=== PATIENT | male | born 1985 ===

== ENCOUNTER 2019-10-25 20:09 | Emergency (ER) | payer SELFPAY ==
[2019-10-25 20:37] VITALS: BP 135/91
--- NOTE | 2019-10-25 23:37 | Emergency Department Report ---
[facility] Chief Complaint: Eye Problems Stated Complaint: BOTH EYES RED Time Seen by Provider: 10/25/19 23:22 Duration: 4 Days Symptoms: Yes Eye Itching, Yes Eye Redness, Yes Purulent Drainage Other History: 34-year-old -[place] male presents to the emergency room complaining of redness and irritation to both eyes since Friday. Patient states he first started in his right eye in the next day came to his left eye. Patient states it first day he had discharge and since just tearing. Patient has been taking gokn-zev-jvdfano pinkeye medication without relief. Patient denies any contact use. Patient does admit to having a cold and runny nose. Patient denies any past medical history takes no medications on a daily basis has no known drug allergies and does not smoke. ED Review of Systems ROS: Stated complaint: BOTH EYES RED Other details as noted in HPI ED Past Medical Hx - Past Medical History Previous Medical History?: No - Surgical History Past Surgical History?: No - Social History Smoking Status: Never Smoker - Medications Home Medications: Home Medications Medication Instructions Recorded Confirmed Last Taken Type Carboxymethylcellulose Sodium 1 drop OP BID PRN 10 Days #1 bottle 10/25/19 Unknown Rx [Refresh Tears] Erythromycin [Erythromycin Ophth 1 strip OU QID 10 Days #1 tube 10/25/19 Unknown Rx Oint] [facility] Exam - Exam General: Vital signs noted. No distress. Alert and acting appropriately. Eye Exam: Both Injection HEENT: No Nasal Congestion, No Pharyngeal Erythema Remainder of HEENT: Normal ED Course Vital Signs 10/25/19 20:35 Temperature 99.3 F Pulse Rate 102 H Respiratory 18 Rate Blood Pressure 135/91 O2 Sat by Pulse 100 Oximetry ED Medical Decision Making - Medical Decision Making 34-year-old -Sud[place] male presents to the emergency room complaining of redness and irritation to both eyes since Friday. Patient states he first started in his right eye in the next day came to his left eye. Patient states it first day he had discharge and since just tearing. Patient has been taking hmsi-bjh-zvcmjzu pinkeye medication without relief. Patient denies any contact use. Patient does admit to having a cold and runny nose. Patient denies any past medical history takes no medications on a daily basis has no known drug allergies and does not smoke. Patient be given a prescription for erythromycin ointment and recommend [id number] refresh for dry eyes. Patient is to follow-up with an learning and development manager if symptoms persist or gets worse. Critical care attestation.: If time is entered above; I have spent that time in minutes in the direct care of this critically ill patient, excluding procedure time. ED Disposition Clinical Impression: Dry eyes, bilateral, Conjunctivitis Disposition: TO HOME OR SELFCARE Is pt being admited?: No Does the pt Need Aspirin: No Condition: Stable Instructions: Conjunctivitis (ED) Additional Instructions: Use eyedrops and eye lubricant as prescribed. If your symptoms persist or gets worse please follow-up with an learning and development manager. Prescriptions: Erythromycin [Erythromycin Ophth Oint] 1 strip OU QID 10 Days #1 tube Carboxymethylcellulose Sodium [Refresh Tears] 1 drop OP BID PRN 10 Days #1 bottle PRN Reason: dry eyes Referrals: PRIMARY CARE, [Primary Care Provider] - 3-5 Days KARSIHMA FRANK MD [Staff Physician] - 3-5 Days Forms: Work/School Release Form(ED)
== END 2019-10-25 23:50 | disposition home or self-care (01) ==
LOC: ED 20:09
DX: H10.89 Other conjunctivitis (principal)
CPT/HCPCS: 99282

== ENCOUNTER 2019-10-29 16:35 | Emergency (ER) | payer SELFPAY ==
[2019-10-29 17:00] VITALS: BP 117/84
--- NOTE | 2019-10-29 18:53 | Emergency Department Report ---
Chief Complaint: Urogenital-Male Stated Complaint: BLOOD WORK/EYES IRRIATATED Time Seen by Provider: 10/29/19 18:52 - HPI History of Present Illness: This is a 34-year-old -[place] male who presents to the emergency room with itching and redness to bilateral eyes for 1 week. Patient states he was diagnosed with conjunctivitis Friday in using antibiotics. Patient states he is applying the tip of the erythromycin dispenser in both eyes with worsening pain. He denies visual changes, swelling, photophobia, headache, or discharge. - ROS Review of Systems: HEENT: itchy and redness bilateral eyes - Exam Vital Signs: Vital Signs 10/29/19 16:59 Temperature 98.2 F Pulse Rate 87 Respiratory 14 Rate Blood Pressure 117/84 [Left] O2 Sat by Pulse 98 Oximetry Physical Exam: HEENT: bilateral conjunctiva injected, yellowish mucoid discharge, PERRL, no edema MSE screening note: Focused history and physical exam performed. Due to findings the following was ordered: ED Medical Decision Making - Medical Decision Making 34 y.o. M. presents with bilateral, conjunctival injection with mucoid discharge concerning for a bacterial conjunctivitis. The Pt is otherwise afebrile and well-appearing without clinical evidence of orbital cellulitis or endoph thalmitis. No recent history concerning for corneal abrasion. The Pt was diagnosed with conjunctivitis on Friday and contaminated antibiotic ointment. Refilled erythomycin opth ointment. Gave strict instructions on how to instill ointment into both eyes. Discussed strict return precautions and supportive care including: frequent hand washing, OTC analgesics, and hydration. Recommended close follow up with a PCP. Patient discharged home stable. ED Disposition for MSE Clinical Impression: Conjunctivitis Qualifiers: Conjunctivitis type: acute Acute conjunctivitis type: bacterial Laterality: bilateral Qualified Code(s): H10.33 - Unspecified acute conjunctivitis, bilateral Disposition: MED SCREENING EXAM-LEFT Is pt being admited?: No Condition: Stable Instructions: Conjunctivitis (ED) Prescriptions: Erythromycin [Erythromycin Ophth Oint] 1 strip OU QID 10 Days #1 tube Referrals: [facility] [place] [Outside] - 3-5 Days [facility] [Outside] - 3-5 Days [facility] [Outside] - 3-5 Days Forms: Work/School Release Form(ED) Time of Disposition: 18:56
== END 2019-10-29 19:20 | disposition left against medical advice (07) ==
LOC: ED 16:35
DX: H10.9 Unspecified conjunctivitis (principal)
CPT/HCPCS: 99281

== ENCOUNTER 2022-06-02 08:45 | Emergency (ER) | payer SELFPAY ==
[2022-06-02 09:02] VITALS: BP 145/89
--- NOTE | 2022-06-02 12:11 | Emergency Department Report ---
ED Male HPI - General Chief complaint: Urogenital-Male Stated complaint: MEDICAL CLEARENCE Time Seen by Provider: 06/02/22 11:38 Source: patient Mode of arrival: Ambulatory Limitations: No Limitations - History of Present Illness Initial comments: 36-year-old black male with no past medical history presents to the emergency department for evaluation of lesions to his penis for the past 2 days. He states that he was in Religion over the past week where he was bit by mosquitoes all over his body because he slept naked outside and noticed the 2 bi maame to his penis also. He states that he has been putting some cream to the insect bites and the bites on his hands legs, and arms have improved but it seems that the bites on his penis are still red. He denies any pain to the lesions and states that it just itches. He denies penile discharge, dysuria, abdominal pain, fever. Patient also in hand the results of a syphilis test, HIV, hepatitis B and herpes test that he took last week and all were negative. He denies any unprotected sex in the last few months. MD Complaint: other (Pruritic lesions to penile area) -: Gradual, days(s) (3) Severity scale (0 -10): 0 denies: discharge, swelling, mass, rash, urinary retention, blood in urine, dysuria, fever, nausea/vomiting, incontinence - Related Data Sexually active: Yes Previous Rx's Medication Instructions Recorded Last Taken Type Carboxymethylcellulose Sodium 1 drop OP BID PRN 10 Days #1 bottle 10/25/19 Unknown Rx [Refresh Tears] Erythromycin [Erythromycin Ophth 1 strip OU QID 10 Days #1 tube 10/29/19 Unknown Rx Oint] diphenhydrAMINE/ZINC 2% [Banophen 1 applicatio TP BID #1 tube 06/02/22 Unknown Rx Anti-Itch] Allergies Allergy/AdvReac Type Severity Reaction Status Date / Time No Known Allergies Allergy Verified 10/25/19 20:11 ED Review of Systems ROS: Stated complaint: MEDICAL CLEARENCE Other details as noted in HPI Comment: All other systems reviewed and negative Constitutional: denies: chills, fever Gastrointestinal: denies: abdominal pain, nausea, vomiting, diarrhea, hematemesis, melena, hematochezia Genitourinary: denies: urgency, dysuria, frequency, hematuria, discharge, testicular pain Musculoskeletal: denies: back pain Skin: lesions ED Past Medical Hx - Past Medical History Previous Medical History?: No - Surgical History Past Surgical History?: No - Social History Smoking Status: Never Smoker - Medications Home Medications: Home Medications Medication Instructions Recorded Confirmed Last Taken Type Carboxymethylcellulose Sodium 1 drop OP BID PRN 10 Days #1 bottle 10/25/19 Unknown Rx [Refresh Tears] Erythromycin [Erythromycin Ophth 1 strip OU QID 10 Days #1 tube 10/29/19 Unknown Rx Oint] diphenhydrAMINE/ZINC 2% [Banophen 1 applicatio TP BID #1 tube 06/02/22 Unknown Rx Anti-Itch] ED Physical Exam - General Limitations: No Limitations General appearance: alert, in no apparent distress - Head Head exam: Present: atraumatic, normocephalic - Eye Eye exam: Present: normal appearance. Absent: conjunctival injection - Neck Neck exam: Present: normal inspection - Respiratory Respiratory exam: Absent: respiratory distress - Cardiovascular Cardiovascular Exam: Present: regular rate - GI/Abdominal GI/Abdominal exam: Present: soft, normal bowel sounds. Absent: distended, tenderness, guarding - Rectal Rectal exam: Present: deferred - exam: Present: circumcision. Absent: testicular tenderness, urethral discharge, scrotal swelling External exam: Present: lesions (Noted to have 2 erythematous baeur to the glans of the penis. No drainage or tenderness noted.). Absent: swelling - Extremities Exam Extremities exam: Present: normal inspection - Back Exam Back exam: Present: normal inspection. Absent: CVA tenderness (R), CVA tenderness (L) - Neurological Exam Neurological exam: Present: alert, oriented X3 - Psychiatric Psychiatric exam: Present: normal affect, normal mood - Skin Skin exam: Present: warm, dry, intact, normal color ED Course Vital Signs 06/02/22 08:57 Temperature 98.9 F Pulse Rate 78 Respiratory 14 Rate Blood Pressure 145/89 O2 Sat by Pulse 100 Oximetry ED Medical Decision Making - Medical Decision Making 36-year-old black male with no past medical history presents to the emergency department for evaluation of lesions to his penis for the past 2 days. He states that he was in Religion over the past week where he was bit by mosquitoes all over his body because he slept naked outside and noticed the 2 bites to his penis also. He states that he has been putting some cream to the insect bites and the bites on his hands legs, and arms have improved but it seems that the bites on his penis are still red. He denies any pain to the lesions and states that it just itches. He denies penile discharge, dysuria, abdominal pain, fever. Patient also in hand the results of a syphilis test, HIV, hepatitis B and herpes test that he took last week and all were negative. He denies any unprotected sex in the last few months. Areas on penis most consistent with insect bites. Of note, patient has similar bites to bilateral inner thighs. Patient will be discharged home with cream to place the area and advised to follow-up with his primary care provider if no improvement or worsening symptoms. He is advised to return to the emergency department as needed. Critical care attestation.: If time is entered above; I have spent that time in minutes in the direct care of this critically ill patient, excluding procedure time. ED Disposition Clinical Impression: Insect bites Qualifiers: Encounter type: initial encounter Site of insect bite: male external genital organs Disposition: HOME / SELF CARE / HOMELESS Is pt being admited?: No Does the pt Need Aspirin: No Condition: Stable Instructions: Insect Bite, Adult, [id number] Additional Instructions: Use medications as prescribed. Follow-up with your primary care provider if no improvement or worsening symptoms. Return to the emergency department as needed. Prescriptions: diphenhydrAMINE/ZINC 2% [Banophen Anti-Itch] 1 applicatio TP BID #1 tube Referrals: NONI REYNAGA MD [Staff Physician] - 3-5 Days Time of Disposition: 12:19
== END 2022-06-02 12:30 | disposition home or self-care (01) ==
LOC: ED 08:45
DX: T14.8XXA Other injury of unspecified body region, initial encounter (principal); W57.XXXA Bitten or stung by nonvenomous insect and other nonvenomous arthropods, initial encounter; Y93.89 Activity, other specified; Y92.89 Other specified places as the place of occurrence of the external cause; Y99.8 Other external cause status
CPT/HCPCS: 99282